=== PATIENT | male | born 1985 | race Caucasian/White ===

== ENCOUNTER 2024-08-24 14:44 | Observation (INO) | payer OTHER ==
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
[2024-08-24 17:30] LABS: Absolute Neutrophil Ct (ANC) 5.62 x10^3/uL (1.78-5.38); BASOPHIL % 0.6 % (0.2-1.2); Basophil (Absolute #) 0.05 x10^3/uL (0.01-0.08); Eosinophil % 1.7 % (0.8-7.0); Eosinophil (Absolute #) 0.14 x10^3/uL (0.04-0.54); Hemoglobin 15.9 g/dL (13.7-17.5); IMMATURE GRAN # 0.03 x10^3u/L (0.001-0.031); IMMATURE GRAN % 0.4 % (0.001-0.429); Lymphocyte (Absolute #) 1.93 x10^3/uL (1.32-3.57); Lymphocytes % 22.9 % (21.8-53.1); Mean Cell Volume 96.2 fL (79.0-92.2); Mean Corpuscular Hemoglobin 30.6 pg (25.7-32.2); Mean Corpuscular Hgb Concent. 31.8 g/dL (32.3-36.5); Monocyte (Absolute #) 0.66 x10^3/uL (0.30-0.82); Monocytes % 7.8 % (5.3-12.2); Neutrophil % 66.6 % (34.0-67.9); Platelet Count 261 x10^3/uL (163-337); Red Cell Distribution Width 15.4 % (11.6-14.4); White Blood Count 8.4 x10^3/uL (4.23-9.07)
[2024-08-24] MEDS ORDERED: MORPHINE SULFATE 2 MG INJ ONE (17:48)
[2024-08-24 17:51] LABS: Erythrocyte Sedimentation Rate 9 mm/hr (0-15)
[2024-08-24 18:06] LABS: PROTIME > 90.0 SECONDS (9.4-12.5)
[2024-08-24 18:17] LABS: INR > 8.00 (0.8-3.0)
[2024-08-24] MEDS ORDERED: Vitamin K 10 MG/ML ONE (19:02)
[2024-08-24] MEDS: Vitamin K 10 MG/ML PO ONE (19:04)
[2024-08-24] MEDS ORDERED: Xylocaine-Mpf 2% 5 Ml Vial ONE (19:04)
[2024-08-24 19:31] LABS: ALBUMIN 4.6 g/dL (3.5-5.0); ANION GAP 13.3 MEQ/L (5-15); BILIRUBIN,TOTAL 0.9 mg/dL (0.2-1.3); Calcium 9.3 mg/dL (8.4-10.2); Creatinine 1 1.18 mg/dL (0.66-1.25); EST GLOMERULAR FILTRATION RATE 80.5 ML/MIN; Potassium 4.8 mmol/L (3.5-5.1); Total Protein 7.7 g/dL (6.3-8.2)
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
--- NOTE | 2024-08-24 21:14 | XRAY ---
CLINICAL HISTORY: left flank bruising on warfarin COMPARISON: None. TECHNIQUE: A CT scan of the abdomen and pelvis was performed with IV contrast. Bowel loops are opacified by prior administration of oral contrast. One of the following dose-reduction techniques was utilized for this exam. Automated exposure control, adjustment of the mA and/or kV according to patient size, and use of iterative reconstruction. 80 CC Isovue 300 was given as an IV Contrast. FINDINGS: The liver is enlarged measuring 20.0 cm and shows diffuse fatty infiltration. It shows regular margins. No solid or cystic hepatic mass is identified. The portal vein, intrahepatic biliary radicals, and the bile ducts are normal. Gall bladder appears normal with wall thickness. No radio-opaque calculus or pericholecystic fluid was identified. The common bile duct appears mildly dilated measuring 9.0 mm in the mid and distal portions, however, the distal CBD appears collapsed. No stone or mass lesion is noted. Pancreas appears normal. No peripancreatic fat stranding, pancreatic pseudocyst, or peripancreatic fluid collection. The spleen is normal in size, and no mass is seen. Both adrenal glands are unremarkable. Both kidneys are normal in size, shape, and orientation. No calculi, cyst mass, or hydronephrosis was seen on either side. The left extrarenal pelvis is noted. Both ureters and urinary bladder appear normal. Stomach and small bowel loops are unremarkable. The caecum and ileocecal junction appear normal. The appendix appears unremarkable. No abnormal gut wall thickening or mass lesion is appreciated. No evidence of bowel obstruction. Pelvic viscera are normally visualized. The prostate and seminal vesicles are normally visualized. No evidence of significant enlargement of the mesenteric or retroperitoneal lymph nodes. Visualized thoracic and lumbar spine show mild degenerative changes.with particular changes at L4-5 and L5-S1 levels. No lytic or sclerotic lesions in visualized bones. Thin atelectatic bands are seen in both lung bases. No pleural or pericardial effusion seen. A heterogeneously enhancing area is seen in the subcutaneous tissues of the left lower flank/abdomen and gluteal region with overlying skin thickening measuring 11.0 x 6.7 cm. Surrounding fat stranding is also identified. The overlying skin grossly appears intact. The underlying gluteal muscles show blurred margins, however, no intramuscular extension is identified. A small 3.8 x 3.0 cm heterogeneous area is also seen in the right region. IMPRESSION: 1. A heterogeneously enhancing area is seen in the subcutaneous tissues of the left lower flank/abdomen and gluteal region with overlying skin thickening measuring 11.0 x 6.7 cm. Surrounding fat stranding is also identified. The overlying skin grossly appears intact. The underlying gluteal muscles show blurred margins, however, no intramuscular extension is identified. A small 3.8 x 3.0 cm heterogeneous area is also seen in the right region, findings represent organized type of collection could be hematoma however other possibilities can not be ruled out advised clinical correlation and follow-up 2. No radiological evidence of peritoneal or retroperitoneal bleeding at the time of study. 3. Hepatomegaly with diffuse hepatic steatosis. Electronically Signed by: Emilia Shanks MD. (08/24/2024 21:10:35 EDT)
--- NOTE | 2024-08-24 21:55 | XRAY ---
CLINICAL HISTORY: abnormal soft tissue density/bruise COMPARISON: None. TECHNIQUE: Thin axial sections of the left lower extremities have been acquired with contrast. Coronal and sagittal reformatted images have also been provided.One of the following dose reduction techniques was utilized for this exam.Automated exposure control, adjustment of the mA and/or kV according to patient size, and use of iterative reconstruction. FINDINGS: A 6.2 x 2.7 cm hyperdense area was identified in the subcutaneous tissue of the upper left gluteal region with surrounding fat stranding. The underlying gluteal muscles show blurred margins, however, no definite intramuscular hematoma is noted. There is another hyperdense area identified along the lateral aspect of the left upper thigh in the subcutaneous tissue measuring 3.7 x 2.9 cm. The underlying muscles appear unremarkable. Both the anterior and the posterior muscle compartments of the left upper leg show intact morphology. No intramuscular hematomas noted. The fat planes appear to be preserved. No soft tissue mass lesion is identified. The visualized pelvic viscera show normal anatomy. The visualized pelvic girdle and the left femur show normal cortical margins. No obvious fracture is noted. No lytic or sclerotic mass lesion is identified. A bony island is seen in the left greater trochanter. The visualized knee joint showed mild osteoarthritic changes. Sclerosis and irregularity is identified along the sacroiliac joints bilaterally, predominantly along the visualized ilial borders. Vessels appear unremarkable. Thick walled urinary bladder is identified despite suboptimal disntension IMPRESSION: 1. The hyperdense area with surrounding fat stranding noted in the subcutaneous tissue of the left upper gluteal region likely represents a hematoma in correlation with the history of the patient. These findings are more clear in the acquired CT abdomen and pelvis. Please correlate with the report. 2. A 3.7 x 2.9 cm hyperdense area is noted in the subcutaneous tissue of the left upper thigh along the lateral aspect and likely represents another hematoma. The underlying muscles appear to be intact. 3. No other significant intramuscular and bony pathology is identified in the left upper thigh. Electronically Signed by: Emilia Shanks MD. (08/24/2024 21:50:25 EDT)
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
[2024-08-24] MEDS: NORCO 5/325 MG PO PRN (23:29)
[2024-08-25 00:37] VITALS: RESP 16
[2024-08-25] MEDS: Ambien 5 MG Tablet PO PRN (01:47)
[2024-08-25 08:38] LABS: Hemoglobin 14.9 g/dL (13.7-17.5); Mean Cell Volume 94.5 fL (79.0-92.2); Mean Corpuscular Hemoglobin 30.6 pg (25.7-32.2); Mean Corpuscular Hgb Concent. 32.4 g/dL (32.3-36.5); Mean Platelet Volume 9.8 fL (9.4-12.4); Platelet Count 223 x10^3/uL (163-337); Red Blood Count 4.87 x10^6/uL (4.63-6.08); White Blood Count 7.4 x10^3/uL (4.23-9.07)
[2024-08-25 08:54] LABS: INR 2.81 (0.8-3.0); PROTIME 28.6 SECONDS (9.4-12.5); PTT 42.4 SECONDS (25.1-36.5)
[2024-08-25 08:56] VITALS: BP 124/66; PULSE 62; TEMP 98.4; O2SAT 97
[2024-08-25] MEDS: ENTRESTO 49 MG-51 MG TABLET PO SCH (09:13)
[2024-08-25] MEDS: COREG 12.5 MG PO SCH (09:13)
[2024-08-25] MEDS: LASIX 20 MG PO SCH (09:14)
[2024-08-25] MEDS: Aldactone 25 MG PO SCH (09:15)
[2024-08-25] MEDS ORDERED: NON-FORMULARY ITEM (Sacubitril/Valsartan [Entresto 24 Mg-26 Mg Tablet] 1 EACH Tablet) PO SCH (10:00)
--- NOTE | 2024-08-25 10:03 | PCM.DS ---
Discharge Summary Date of Admission: 08/24/24 22:48 Date of Discharge: 08/25/24 Admitting Physician: PRETTY LOCK MD Primary Care Provider: NO FAMILY DOCTOR Allergies Allergies No Known Drug Allergies Allergy (Verified 08/24/24 15:40) Hospital Summary - Hospital Course Hospital Course: Mr. Herr is a 38 year old incarcerated male who presented to ER on 08/24/24 with left thigh hematoma and bruising and found to have an INR >8. The patient states he has been taking Coumadin for over 12 years due to a mitral heart valve placement in 2014, and has been on the same dose of 12 mg daily for the entire time. His belief is [facility] the [facility] may have accidentally given him instead of 12- 1 mg tablets a higher dose of each tablet. He denies changes in his diet, new medications. He was given vitamin K in the ED and admitted. Today his INR is 2.81 and will be able to d/c back. He is c/o pain on left hip region where bruising is located. Abd CT/ Pelvis and lower extremity CT shows a hematoma. Will need OP f/u. Will continue RICE techniques, not applying compression, as touching causes pain and Tylenol OP for pain. Will need close OP monitoring for any possible complications associated with hematomas. Pt denies CP, SOB, abd. pain, N/V/D. Continue OP monitoring of Coumadin dosing. - Vitals & Intake/Output Vital Signs: Vital Signs Temperature 98.4 F 08/25/24 08:00 Pulse Rate 62 08/25/24 08:00 Respiratory Rate 16 08/25/24 08:00 Blood Pressure 124/66 08/25/24 08:00 O2 Sat by Pulse Oximetry 97 08/25/24 08:00 Intake & Output: Intake & Output 08/22/24 08/23/24 08/24/24 08/25/24 11:59 11:59 11:59 11:59 Intake Total 2800 Output Total 1500 Balance 1300 Weight 99 kg - Lab Result Diagrams: 08/25/24 08:39 08/24/24 19:15 Lab Results-Last 24 Hrs: Lab Results-Last 24 Hours 08/24/24 08/24/24 08/24/24 Range/Units 16:02 17:15 17:15 WBC 8.4 (4.23-9.07) x10^3/uL RBC 5.20 (4.63-6.08) x10^6/uL Hgb 15.9 (13.7-17.5) g/dL Hct 50.0 (40.1-51.0) % MCV 96.2 H (79.0-92.2) fL MCH 30.6 (25.7-32.2) pg MCHC 31.8 L (32.3-36.5) g/dL RDW 15.4 H (11.6-14.4) % Plt Count 261 (163-337) x10^3/uL MPV 10.0 (9.4-12.4) fL Gran % 66.6 (34.0-67.9) % Immature Gran % (Auto) 0.4 (0.001-0.429) % Nucleat RBC Rel Count 0.0 (0.00-0.2) % Eos # (Auto) 0.14 (0.04-0.54) x10^3/uL Immature Gran # (Auto) 0.03 (0.001-0.031) x10^3u/L Absolute Lymphs (auto) 1.93 (1.32-3.57) x10^3/uL Absolute Monos (auto) 0.66 (0.30-0.82) x10^3/uL Absolute Nucleated RBC 0.00 (0.00-0.012) x10^3u/L Lymphocytes % 22.9 (21.8-53.1) % Monocytes % 7.8 (5.3-12.2) % Eosinophils % 1.7 (0.8-7.0) % Basophils % 0.6 (0.2-1.2) % Absolute Granulocytes 5.62 H (1.78-5.38) x10^3/uL Basophils # 0.05 (0.01-0.08) x10^3/uL ESR 9 (0-15) mm/hr PT > 90.0 H (9.4-12.5) SECONDS INR > 8.00 H* (0.8-3.0) APTT 75.0 H (25.1-36.5) SECONDS Sodium (135-145) mmol/L Potassium (3.5-5.1) mmol/L Chloride (98-107) mmol/L Carbon Dioxide (22-30) mmol/L Anion Gap (5-15) MEQ/L BUN (9-20) mg/dL Creatinine (0.66-1.25) mg/dL Estimated GFR ML/MIN Glucose (74-106) mg/dL Lactic Acid 1.7 (0.4-2.0) Calcium (8.4-10.2) mg/dL Total Bilirubin (0.2-1.3) mg/dL AST (17-59) U/L ALT (0-50) U/L Alkaline Phosphatase (38-126) U/L Creatine Kinase (55-170) U/L Troponin I (0.000-0.033) ng/mL Serum Total Protein (6.3-8.2) g/dL Albumin (3.5-5.0) g/dL 08/24/24 08/24/24 08/24/24 Range/Units 19:15 19:15 22:29 WBC (4.23-9.07) x10^3/uL RBC (4.63-6.08) x10^6/uL Hgb (13.7-17.5) g/dL Hct (40.1-51.0) % MCV (79.0-92.2) fL MCH (25.7-32.2) pg MCHC (32.3-36.5) g/dL RDW (11.6-14.4) % Plt Count (163-337) x10^3/uL MPV (9.4-12.4) fL Gran % (34.0-67.9) % Immature Gran % (Auto) (0.001-0.429) % Nucleat RBC Rel Count (0.00-0.2) % Eos # (Auto) (0.04-0.54) x10^3/uL Immature Gran # (Auto) (0.001-0.031) x10^3u/L Absolute Lymphs (auto) (1.32-3.57) x10^3/uL Absolute Monos (auto) (0.30-0.82) x10^3/uL Absolute Nucleated RBC (0.00-0.012) x10^3u/L Lymphocytes % (21.8-53.1) % Monocytes % (5.3-12.2) % Eosinophils % (0.8-7.0) % Basophils % (0.2-1.2) % Absolute Granulocytes (1.78-5.38) x10^3/uL Basophils # (0.01-0.08) x10^3/uL ESR (0-15) mm/hr PT (9.4-12.5) SECONDS INR (0.8-3.0) APTT (25.1-36.5) SECONDS Sodium 139 (135-145) mmol/L Potassium 4.8 (3.5-5.1) mmol/L Chloride 102 (98-107) mmol/L Carbon Dioxide 28 (22-30) mmol/L Anion Gap 13.3 (5-15) MEQ/L BUN 15 (9-20) mg/dL Creatinine 1.18 (0.66-1.25) mg/dL Estimated GFR 80.5 ML/MIN Glucose 89 (74-106) mg/dL Lactic Acid (0.4-2.0) Calcium 9.3 (8.4-10.2) mg/dL Total Bilirubin 0.90 (0.2-1.3) mg/dL AST 42 (17-59) U/L ALT 40 (0-50) U/L Alkaline Phosphatase 49 (38-126) U/L Creatine Kinase 395 H (55-170) U/L Troponin I 0.030 0.028 (0.000-0.033) ng/mL Serum Total Protein 7.7 (6.3-8.2) g/dL Albumin 4.6 (3.5-5.0) g/dL 08/25/24 08/25/24 Range/Units 08:39 08:39 WBC 7.4 (4.23-9.07) x10^3/uL RBC 4.87 (4.63-6.08) x10^6/uL Hgb 14.9 (13.7-17.5) g/dL Hct 46.0 (40.1-51.0) % MCV 94.5 H (79.0-92.2) fL MCH 30.6 (25.7-32.2) pg MCHC 32.4 (32.3-36.5) g/dL RDW 15.0 H (11.6-14.4) % Plt Count 223 (163-337) x10^3/uL MPV 9.8 (9.4-12.4) fL Gran % (34.0-67.9) % Immature Gran % (Auto) (0.001-0.429) % Nucleat RBC Rel Count (0.00-0.2) % Eos # (Auto) (0.04-0.54) x10^3/uL Immature Gran # (Auto) (0.001-0.031) x10^3u/L Absolute Lymphs (auto) (1.32-3.57) x10^3/uL Absolute Monos (auto) (0.30-0.82) x10^3/uL Absolute Nucleated RBC (0.00-0.012) x10^3u/L Lymphocytes % (21.8-53.1) % Monocytes % (5.3-12.2) % Eosinophils % (0.8-7.0) % Basophils % (0.2-1.2) % Absolute Granulocytes (1.78-5.38) x10^3/uL Basophils # (0.01-0.08) x10^3/uL ESR (0-15) mm/hr PT 28.6 H (9.4-12.5) SECONDS INR 2.81 D (0.8-3.0) APTT 42.4 H (25.1-36.5) SECONDS Sodium (135-145) mmol/L Potassium (3.5-5.1) mmol/L Chloride (98-107) mmol/L Carbon Dioxide (22-30) mmol/L Anion Gap (5-15) MEQ/L BUN (9-20) mg/dL Creatinine (0.66-1.25) mg/dL Estimated GFR ML/MIN Glucose (74-106) mg/dL Lactic Acid (0.4-2.0) Calcium (8.4-10.2) mg/dL Total Bilirubin (0.2-1.3) mg/dL AST (17-59) U/L ALT (0-50) U/L Alkaline Phosphatase (38-126) U/L Creatine Kinase (55-170) U/L Troponin I (0.000-0.033) ng/mL Serum Total Protein (6.3-8.2) g/dL Albumin (3.5-5.0) g/dL - Radiology Exams Ordered Rad Exams-Entire Visit: Radiology Procedures Category Date Time Status ABDOMEN AND PELVIS W CONTRAST [CT] Stat Exams 08/24/24 16:10 Completed CHEST 1 VIEW (PORTABLE) Stat Exams 08/24/24 16:07 Completed LOWER EXTREMITY WITH CONTRAST [CT] Stat Exams 08/24/24 16:10 Completed Discharge Exam General Appearance: no apparent distress, alert Neurologic Exam: alert, oriented x 3, cooperative, normal mood/affect, nml cerebellar function, sensation nml, No motor deficits Eye Exam: PERRL, EOMI, eyes nml inspection Ears, Nose, Throat Exam: normal ENT inspection, pharynx normal, moist mucous membranes Neck Exam: normal inspection, non-tender, supple, full range of motion Respiratory Exam: normal breath sounds, lungs clear, No respiratory distress Cardiovascular Exam: regular rate/rhythm, normal heart sounds Gastrointestinal/Abdomen Exam: soft, No tenderness, No mass Male Genitalia Exam: deferred Rectal Exam: deferred Back Exam: normal inspection, normal range of motion, No CVA tenderness, No vertebral tenderness Extremity Exam: normal inspection, normal range of motion Skin Exam: normal color, warm, dry, other (Brusing of left hip, upper leg, and flank regions. Pain with palpation of regions.) Final Diagnosis/Problem List - Final Discharge Diagnosis/Problem (1) Coumadin toxicity Current Visit: Yes Status: Acute Assessment & Plan: - INR on admission > 8.00 - Vitamin K gave in ER on admission - Today INR 2.81 - Pharmacy to dose coumadin Code(s): T45.511A - POISONING BY ANTICOAGULANTS, ACCIDENTAL, INIT (2) Elevated INR Current Visit: Yes Status: Acute Assessment & Plan: - INR on admission > 8.00 - Vitamin K gave in ER on admission - Today INR 2.81 Code(s): R79.1 - ABNORMAL COAGULATION PROFILE (3) Hematoma Current Visit: Yes Status: Acute Assessment & Plan: - Denies fall or injury - Likely 2:2 elevated INR - Radiology results reviewed - RICE techniques- no compression as pain increased with touching - Narcotic pain control IP - Will need to d/c with Tylenol RX per [facility] request as they do not provide w/o an RX Code(s): T14.8XXA - OTHER INJURY OF UNSPECIFIED BODY REGION, INITIAL ENCOUNTER (4) H/O mitral valve replacement with mechanical valve Current Visit: Yes Status: Chronic Assessment & Plan: - Noted - On chronic coumadin Code(s): Z95.2 - PRESENCE OF PROSTHETIC HEART VALVE - Discharge Discharge Date: 08/25/24 (Correction) Disposition: XFER OTHER Condition: Stable Prescriptions: New Acetaminophen [Tylenol] 325 mg PO Q6H PRN PRN 7 Days #56 tablet PRN Reason: Pain And/Or Fever Continue Spironolactone 25 mg [Aldactone 25 MG] 25 mg PO DAILY Sacubitril/Valsartan [Entresto 24 mg-26 mg Tablet] 1 tab PO BID Carvedilol 12.5 mg [Coreg 12.5 mg] 12.5 mg PO BID Furosemide 20 mg [Lasix 20 mg] 20 mg PO DAILY Changed Warfarin Sodium [Jantoven] 8 mg PO DAILY 3 Days #3 tab Additional Instructions: Take Wafarin 8mg daily for 3 days then check PT/INR. Please recheck PT/INR tomorrow as well. Follow up with: DOCTOR,NO FAMILY [Primary Care Provider] -
[2024-08-25] MEDS ORDERED: PHARMACY RENAL DOSING MC ONE (10:10)
== END 2024-08-25 12:25 | disposition home or self-care (01) ==
LOC: ED 14:44 → MED SURG 22:48 → EEVIPCON 22:48
PROVIDERS: ADMIT Student in an Organized Health Care Education/Training Program; ATTEND Student in an Organized Health Care Education/Training Program
DX: T45.511A Poisoning by anticoagulants, accidental (unintentional), initial encounter (principal); R79.1 Abnormal coagulation profile; S70.12XA Contusion of left thigh, initial encounter; I10 Essential (primary) hypertension; Z95.2 Presence of prosthetic heart valve; Z79.01 Long term (current) use of anticoagulants; Z79.899 Other long term (current) drug therapy
CPT/HCPCS: 36415; 71045; 73701; 74177; 80053; 82550; 83605; 84484; 85025; 85027; 85610; 85652; 85730; 87040; 93005; 99285; G0378; J2270; J3430; Q3014; A9270-GY